=== PATIENT | female | born 1985 | race Two or more races ===

== ENCOUNTER 2022-11-09 12:51 | Day surgery (SDC) | payer BC ==
[2022-11-07 11:41] VITALS: BMI 32.8
[2022-11-09] MEDS ORDERED: LIDOCAINE HCL/PF 2% SDV 5ML VIAL ONE (14:01)
[2022-11-09] MEDS ORDERED: PROPOFOL 20 ML ONE ×3 (14:02→15:24)
[2022-11-09] MEDS ORDERED: MIDAZOLAM HCL 2 MG/2 ML SINGLE DOSE VIAL ONE ×2 (14:02→14:16)
[2022-11-09] MEDS ORDERED: BUPIVACAINE HCL/PF 2.5 MG/ML - 30 ML VIAL IJ ONE (14:08)
[2022-11-09] MEDS ORDERED: ROPIVACAINE HCL 0.5% 30ML VIAL ONE (14:16)
[2022-11-09] MEDS ORDERED: DEXAMETHASONE SOD PHOSPHATE 4 MG/1 ML VIAL ONE (14:44)
[2022-11-09] MEDS ORDERED: ceFAZolin SODIUM 1 GM VIAL ONE (14:44)
[2022-11-09] MEDS ORDERED: ACETAMINOPHEN 1000 MG/100 ML BAG IVPB ONE (16:14)
[2022-11-09] MEDS ORDERED: FENTANYL CITRATE/PF 50 MCG/ML VIAL ONE ×2 (16:14→16:27)
[2022-11-09] MEDS ORDERED: ONDANSETRON 4 MG/2 ML VIAL IVPUSH PRN (16:14)
[2022-11-09] MEDS ORDERED: oxyCODONE HCL 5 MG TABLET PO PRN ×2 (16:14)
[2022-11-09] MEDS ORDERED: ACETAMINOPHEN INJECTION 100 ML IVPB ONE (16:14)
[2022-11-09] MEDS ORDERED: ONDANSETRON 4 MG/2 ML VIAL ONE (16:27)
[2022-11-09] MEDS ORDERED: oxyCODONE HCL 5 MG TABLET ONE (16:58)
[2022-11-09 17:07] VITALS: TEMP 97.9
[2022-11-09 17:18] VITALS: RESP 18
[2022-11-09 18:22] VITALS: BP 120/74; PULSE 82
== END 2022-11-09 18:22 | disposition home or self-care (01) ==
LOC: FASU 12:51
PROVIDERS: ATTEND Orthopaedic Surgery
PROC: 0QSJ04Z Reposition Right Fibula with Internal Fixation Device, Open Approach (ICD-10-PCS; principal; 2022-11-09 15:03)
DX: S82.61XA Displaced fracture of lateral malleolus of right fibula, initial encounter for closed fracture (principal); S93.431A Sprain of tibiofibular ligament of right ankle, initial encounter; X58.XXXA Exposure to other specified factors, initial encounter; Y93.9 Activity, unspecified; Y92.9 Unspecified place or not applicable
CPT/HCPCS: 27792; 27829; C1713; 81025; 94760